=== PATIENT | female | born 1990 | race Caucasian/White ===

== ENCOUNTER 2020-05-01 09:16 | Emergency (ER) | payer OTHER ==
[~2020-05-01] VITALS: Ht 175.3 cm; Wt 75.0 kg
[2020-05-01 09:18] VITALS: BP 110/67
[2020-05-01 09:52] LABS: COVID AG,FIA SOURCE NASOPHARYNGEAL
== END 2020-05-01 12:51 | disposition home or self-care (01) ==
LOC: EMS 09:18
DX: O26.891 Other specified pregnancy related conditions, first trimester (principal); Z20.828 Contact with and (suspected) exposure to other viral communicable diseases; Z3A.08 8 weeks gestation of pregnancy
CPT/HCPCS: 87426; 99283; U0003